=== PATIENT | male | born 2000 | race Caucasian/White ===

== ENCOUNTER 2020-01-02 16:49 | Emergency (ER) | payer OTHER, SELFPAY ==
--- NOTE | 2020-01-02 16:57 | ED.GENADULT ---
HPI - General Adult General Chief complaint: Skin/Abscess/Foreign Body Stated complaint: RASH/ITCHING Time Seen by Provider: 01/02/20 16:57 Source: patient Mode of arrival: ambulatory Limitations: no limitations History of Present Illness HPI narrative: 19-year-old male patient presents to the [facility] with complaints of a rash for the past 2 to 3 weeks. Patient states he thinks he might of come into contact with some bedbugs at his girlfriend's house. Patient states his girlfriend also has a cat. Patient states that the rash is to bilateral arms, back and bilateral legs. Patient states it is very itchy. Patient states he has tried Sally as well as some cortisone cream. Patient states that he was seen in the clinic in [place] a couple weeks ago for the same complaints and was given a shot of what he thinks might have been some steroids and some Sally. Patient states he felt like it helped for couple of days but mostly just made him sleepy. Denies any new lotions, detergents, soaps. Related Data Home Medications Medication Instructions Recorded Confirmed aripiprazole [Abilify] 15 mg PO DAILY 01/02/20 01/02/20 citalopram 20 mg PO DAILY 01/02/20 01/02/20 prazosin 1 mg PO BID 01/02/20 01/02/20 Allergies Allergy/AdvReac Type Severity Reaction Status Date / Time [facility] [[facility] Allergy Hives Verified 01/02/20 17:25 Review of Systems Review of Systems: Narrative: CONSTITUTIONAL: Denies fever, chills, or sweats. EYES: Denies visual changes, redness, or discharge. ENT: Denies rhinorrhea, congestion, sore throat, or otalgia. CARDIOVASCULAR: Denies chest pain, palpitations, or edema. RESPIRATORY: Denies cough or dyspnea. GASTROINTESTINAL: Denies abdominal pain, nausea, vomiting, or diarrhea. GENITOURINARY: Denies dysuria or hematuria. SKIN: Positive rash with itching to bilateral upper and lower extremities and back x2 to 3 weeks. MUSCULOSKELETAL: Denies back pain, joint pain, or myalgia. NEUROLOGIC: Denies headache, numbness, or weakness. PSYCHIATRIC: Denies anxiety or depression. [facility] Past Medical History Medical History (Updated 01/02/20 @ 17:27 by LUBA Rouse) Depression Comments At the time of my signature I agree with nursing past medical history, surgical, social, and family history. There is no relevant family history pertinent to the presenting complaint. Exam Narrative: Exam Narrative: GENERAL: Well-appearing, well-nourished, and in no acute distress. HEAD: Normocephalic, atraumatic. EYES: PERRLA and EOMI. ENT: Nares clear, no rhinorrhea or epistaxis. Mucous membranes moist. NECK: Supple. No lymphadenopathy CHEST: Clear to auscultation. No respiratory distress. HEART: Regular rate and rhythm. No murmur heard. Normal peripheral pulses. ABDOMEN: Soft, nontender, nondistended, normal active bowel sounds. EXTREMITIES: Normal range of motion. No edema. SKIN: Warm, dry, patient has various pinpoint like rash in various sizes some with scabbing from itching. No active drainage at this time. The rash varies all over bilateral upper extremities, bilateral lower extremities and lower back NEURO: No focal deficits. Alert and oriented x3. Course Vital Signs Vital signs: Vital Signs Temperature 36.4 C 01/02/20 17:11 Pulse Rate 70 01/02/20 17:11 Respiratory Rate 20 01/02/20 17:11 Blood Pressure 145/85 H 01/02/20 17:11 Pulse Oximetry 100 01/02/20 17:11 Temperature 36.4 C 01/02/20 17:11 Pulse Rate 70 01/02/20 17:11 Respiratory Rate 20 01/02/20 17:11 Blood Pressure 145/85 H 01/02/20 17:11 Pulse Oximetry 100 01/02/20 17:11 Vital signs reviewed The patient has been informed that they may have pre-hypertension or Hypertension based on a BP reading in the department. I recommend that the patient call the primary care provider listed on their discharge instructions or a physician of their choice this week to arrange follow up for further evaluation of possible
[2020-01-02 17:11] VITALS: BP 145/85; PULSE 70; RESP 20; TEMP 36.4; O2SAT 100
== END 2020-01-02 17:32 | disposition home or self-care (01) ==
PROVIDERS: Emergency Provider Nurse Practitioner Family
DX: R21 Rash and other nonspecific skin eruption (principal); F32.9 Major depressive disorder, single episode, unspecified
CPT/HCPCS: 99213; G0463

== ENCOUNTER 2020-12-04 10:03 | Emergency (ER) | payer BC, SELFPAY ==
--- NOTE | 2020-12-04 10:23 | ED.GENADULT ---
HPI - General Adult General Chief complaint: Unspecified Stated complaint: Not feeling well Time Seen by Provider: 12/04/20 10:23 Source: patient, RN notes reviewed and old records reviewed Mode of arrival: ambulatory Limitations: no limitations History of Present Illness HPI narrative: 20-year-old male presents to the [facility] with complaints of I am just not feeling well. Patient reports on Sunday he started with nausea and vomited one time. Had felt feverish and developed chills. On Sunday he states he became very weak still nauseous and vomited. Has had frequency and burning with urination. Denies any chest pain. Has had intermittent abdominal cramping. Has a history of depression, anxiety. States that yesterday he developed a sore throat with a headache. Denies any chances of an STD. Related Data Home Medications Medication Instructions Recorded Confirmed aripiprazole [Abilify] 15 mg PO DAILY 01/02/20 01/02/20 citalopram 20 mg PO DAILY 01/02/20 01/02/20 prazosin 1 mg PO BID 01/02/20 01/02/20 Allergies Allergy/AdvReac Type Severity Reaction Status Date / Time ziprasidone [From Geodon] Allergy Hives Verified 01/02/20 17:25 Review of Systems Review of Systems: All systems reviewed & are unremarkable except as noted in HPI and below Constitutional: Constitutional: Reports as per HPI, Reports chills and Reports fever(s) (Subjective) Eyes: Eyes: Reports no additional eye complaints ENT: Reports as per HPI and Reports sore throat Cardiovascular: Cardiovascular: Reports no additional cardiovascular complaints and Denies chest pain Respiratory: Respiratory: Reports as per HPI, Denies chest congestion, Reports cough, Denies dyspnea and Denies wheezing Gastrointestinal: Gastrointestinal: Reports as per HPI, Reports abdominal pain (Cramping), Denies diarrhea, Reports nausea and Reports vomiting Genitourinary: Genitourinary: Reports as per HPI, Reports dysuria and Reports urinary frequency Musculoskeletal: Musculoskeletal: Reports as per HPI, Denies back pain, Reports myalgias, Denies joint swelling and Denies muscle cramps Integumentary/Breasts: Skin/Breast: Reports system reviewed and no additional complaints, except as docu Neurologic: Reports system reviewed and no additional complaints, except as documented Psychiatric: Psychiatric: Reports no additional psychiatric complaints Allergic/Immunologic: Allergic/Immunologic: Reports no additional allergic/immunologic complaints PMF Past Medical History Medical History Depression Social History Social History (Updated 12/04/20 @ 10:27 by Silvia Pacheco) Living arrangements: with family Gender identity (if verbalized by the patient): Male Comments At the time of my signature, I reviewed and agree with the nursing past medical, surgical, social, and family history. There is no relevant family history pertinent to the patient complaint. Exam Const: General: no acute distress, alert and ill appearing acutely Nutritional Appearance: well nourished Orientation/consciousness: patient oriented x3 Limitations: no limitations HENMT: Head: normal to inspection Ears: external ears normal, TM's normal bilaterally and EAC's normal General nose exam: Normal external nose present Face and sinus: normal facial exam Throat: posterior oropharynx normal, tonsils normal, uvula midline and no uvular edema Eyes: Conjunctivae: conjunctivae normal Pupils: Equal, round and reactive pupils present Neck: Neck: normal visual inspection, no lymphadenopathy and no meningeal signs Chest: Chest palpation & inspection: normal inspection of the chest Resp: Effort & Inspection: normal respiratory effort and no use of accessory muscles Auscultation: clear to auscultation bilaterally, no crackles, no rales, no rhonchi and no wheezes Cardio: Rate: regular rate Rhythm: regular rhythm GI: GI Palp: Yes Soft to palpation
[2020-12-04 10:28] VITALS: BP 132/79; PULSE 97; RESP 18; TEMP 36.9; O2SAT 100
== END 2020-12-04 10:56 | disposition home or self-care (01) ==
PROVIDERS: Emergency Provider Nurse Practitioner; PCP Family Medicine
DX: J02.0 Streptococcal pharyngitis (principal); F32.9 Major depressive disorder, single episode, unspecified
CPT/HCPCS: 81003; 87491; 87591; 87661; 87880; 99213; G0463

== ENCOUNTER 2021-02-07 10:20 | Emergency (ER) | payer BC, SELFPAY ==
[2021-02-07 10:36] VITALS: BP 122/80; PULSE 89; RESP 18; TEMP 36.5; O2SAT 99
--- NOTE | 2021-02-07 11:02 | ED.URI ---
HPI - URI/Sore Throat General Chief Complaint: Upper Respiratory Infection Stated Complaint: cough,no appetite,headache Time Seen by Provider: 02/07/21 10:54 Source: patient and RN notes reviewed Mode of arrival: ambulatory Limitations: no limitations History of Present Illness HPI Narrative: Patient presents today with a 2-day history of postnasal drip, cough, sore throat, decreased appetite, nausea, headache. He currently rates his sore throat 3/10 and has been taking Sally and Tylenol with some mild relief. Patient states that his symptoms are similar to when he had strep in November. MD elicited complaint: cough and sore throat Related Data Home Medications Medication Instructions Recorded Confirmed divalproex 500 mg PO QID 02/07/21 02/07/21 paliperidone 6 mg PO DAILY 02/07/21 02/07/21 trazodone 50 mg DAILY 02/07/21 02/07/21 Allergies Allergy/AdvReac Type Severity Reaction Status Date / Time ziprasidone [From [facility]] Allergy Hives Verified 02/07/21 10:43 Review of Systems Review of Systems: CONSTITUTIONAL: Denies body aches, fever, chills, or sweats. EYES: Denies visual changes, redness, or discharge. ENT: Denies rhinorrhea, congestion, or otalgia.+ Postnasal drip, sore throat CARDIOVASCULAR: Denies chest pain, palpitations, or edema. RESPIRATORY: Denies cough or dyspnea. GASTROINTESTINAL: Denies abdominal pain, vomiting, or diarrhea.+ Nausea, decreased appetite GENITOURINARY: Denies dysuria or hematuria. SKIN: Denies rash, itching, or wounds. MUSCULOSKELETAL: Denies back pain, joint pain, or myalgia. NEUROLOGIC: Denies numbness, tingling, or weakness.+ Headache PSYCH: Denies depression or anxiety. [facility] Past Medical History Medical History Depression Social History Social History Gender identity (if verbalized by the patient): Male Comments At time of signature, I have reviewed and agree with nursing past medical, surgical, social and family history unless otherwise noted. Please see nursing chart for further information. There is no relevant family history pertinent to the presenting complaint Exam Narrative: GENERAL: Well-appearing, well-nourished, and in no acute distress. HEAD: Normocephalic, atraumatic. EYES: EOMI. No redness or drainage. Conjunctivae normal. ENT: Mucous membranes pink and moist. Nares clear. No rhinorrhea. TMs normal bilaterally. Throat normal. Uvula midline. NECK: Normal AROM. Supple. Left anterior cervical chain lymphadenopathy. CHEST: No respiratory distress. Clear to auscultation. HEART: Regular rate and rhythm. No murmur appreciated. Normal peripheral pulses. EXTREMITIES: Normal range of motion. No edema. SKIN: Warm, dry, no rash. Capillary refill normal. Normal skin turgor. NEURO: No focal deficits. Alert and oriented x3. Gait steady. PSYCH: Normal affect. No signs of depression or anxiety. Course Course Level of Care: Express Care Visit Vital Signs Vital signs: Vital Signs Temperature 97.7 F 02/07/21 10:36 Pulse Rate 89 02/07/21 10:36 Respiratory Rate 18 02/07/21 10:36 Blood Pressure 122/80 02/07/21 10:36 Pulse Oximetry 99 02/07/21 10:36 Temperature 97.7 F 02/07/21 10:36 Pulse Rate 89 02/07/21 10:36 Respiratory Rate 18 02/07/21 10:36 Blood Pressure 122/80 02/07/21 10:36 Pulse Oximetry 99 02/07/21 10:36 Reviewed. Pt has been instructed to follow up with his PCP regarding his elevated blood pressure today. MDM - URI/Sore Throat Differential Diagnosis Differential diagnosis: Likely upper respiratory infection, viral infection, pharyngitis and other (Strep throat) Lab Data Attestation: I reviewed the patient's lab results. Labs: Strep Screen Presumptive Negative *(Reference Range: Negative)* Critical Care Time Critical Care Time
== END 2021-02-07 11:08 | disposition home or self-care (01) ==
PROVIDERS: Emergency Provider Nurse Practitioner; PCP Family Medicine
DX: J06.9 Acute upper respiratory infection, unspecified (principal); F32.A Depression, unspecified
CPT/HCPCS: 87081; 87880; 99213; G0463

== ENCOUNTER 2021-11-06 11:51 | Emergency (ER) | payer BC, SELFPAY ==
[2021-11-06 12:17] VITALS: BP 147/91; PULSE 87; RESP 18; TEMP 37.1; O2SAT 100
--- NOTE | 2021-11-06 13:28 | ED.GENADULT ---
HPI - General Adult General Chief complaint: Urogenital-Male Stated complaint: groin pain History of Present Illness HPI narrative: Patient is a 21-year-old male who presents to the [facility] for evaluation of of a testicular problem that began yesterday. Patient reports he felt and left testicle after sitting down in a chair. Pain is intermittent and achy in nature. He reports taking ibuprofen for pain. Patient does not identify alleviating or aggravating factors. Denies the following associated signs and symptoms fever, dysuria, penile discharge, and presence of scrotal mass. Additionally, he denies injury, straining or lifting, and sexual contact. Related Data Home Medications Medication Instructions Recorded Confirmed divalproex 500 mg tablet,extended 500 mg PO QID 02/07/21 11/06/21 release 24 hr paliperidone 6 mg tablet,extended 6 mg PO DAILY 02/07/21 11/06/21 release 24 hr Strattera 11/06/21 mirtazapine 15 mg tablet 7.5 mg DAILY 11/06/21 11/06/21 Allergies Allergy/AdvReac Type Severity Reaction Status Date / Time [facility] Allergy Hives Verified 11/06/21 12:43 Review of Systems Review of Systems: ?Denies abdominal pain, nausea, vomiting, diarrhea, constipation, testicular swelling, purpuric rash, abdominal pain, arthralgias, intermittent scrotal masses, groin swelling/pain, parotid gland swelling, flank pain or hematuria PMFSH Past Medical History Medical History (Updated 11/06/21 @ 14:01 by LUBA Wright, FAY) Anxiety Bipolar 2 disorder Depression Social History Social History Gender identity (if verbalized by the patient): Male Comments I have reviewed and agree with the patient's past medical, surgical, social, and family hx as documented by the RN. There is no relevant family history pertinent to the presenting complaint. Exam Narrative: GENERAL: Well-appearing, well-nourished, and in no acute distress. HEAD: Normocephalic, atraumatic. NECK: Supple. No lymphadenopathy or nuchal rigidity. CHEST: Lung sounds are clear to auscultation in bilateral lung lee. No respiratory distress. HEART: Regular rate and rhythm. No murmur, gallop, or rub heard. ABDOMEN: Soft, non-tender, non-distended, normal active bowel sounds in all quadrants. No guarding. No rebound tenderness. No pulsatile or palpable abdominal mass(es). No CVAT : No evidence of tenderness, high-riding, or horizontally displaced testis. No evidence of inguinal or scrotal nonreducible/reducible mass with severe pain, scrotal or perineal erythema, necrotic or blistered skin lesions, and toxic appearance. EXTREMITIES: Normal range of motion. No edema. SKIN: Warm, dry, no rash. No skin color changes. Excellent turgor. NEURO: No focal deficits. Alert and oriented x3. Course Course Level of Care: Express Care Visit Vital Signs Vital signs: Vital Signs Temperature 98.8 F 11/06/21 12:17 Pulse Rate 87 11/06/21 12:17 Respiratory Rate 18 11/06/21 12:17 Blood Pressure 147/91 H 11/06/21 12:17 Pulse Oximetry 100 11/06/21 12:17 Oxygen Delivery Room Air 11/06/21 12:17 Temperature 98.8 F 11/06/21 12:17 Pulse Rate 87 11/06/21 12:17 Respiratory Rate 18 11/06/21 12:17 Blood Pressure 147/91 H 11/06/21 12:17 Pulse Oximetry 100 11/06/21 12:17 Oxygen Delivery Room Air 11/06/21 12:17 Medical Decision Making Differential Diagnosis Differential Diagnosis: Testicular torsion, STI, UTI, orchitis Vital Signs Vital Signs: Vital Signs Temperature 98.8 F 11/06/21 12:17 Pulse Rate 87 11/06/21 12:17 Respiratory Rate 18 11/06/21 12:17 Blood Pressure 147/91 H 11/06/21 12:17 Pulse Oximetry 100 11/06/21 12:17 Oxygen Delivery Room Air 11/06/21 12:17 Temperature 98.8 F 11/06/21 12:17 Pulse Rate 87 11/06/21 12:17 Respiratory Rate 18 11/06/21 12:17 Blood Pressure 147
== END 2021-11-06 13:54 | disposition home or self-care (01) ==
PROVIDERS: Emergency Provider Nurse Practitioner Family; PCP Family Medicine
DX: E29.9 Testicular dysfunction, unspecified (principal); F31.81 Bipolar II disorder
CPT/HCPCS: 81003; 99213; G0463

== ENCOUNTER 2023-01-08 05:36 | Emergency (ER) | payer BC, SELFPAY ==
--- NOTE | 2023-01-08 05:48 | ECG_ITS ---
Measurements Intervals [place] Rate: 117 P: 65 [place]: 119 QRS: 77 QRSD: 84 T: -3 QT: 300 QTc: 420 Interpretive Statements SINUS TACHYCARDIA WITH SHORT [place] INTERVAL VOLTAGE CRITERIA FOR LVH WITH SECONDARY REPOLARIZATION ABNORMALITY VERSUS NORMAL VARIANT FOR AGE ABNORMAL ECG NO PREVIOUS ECG AVAILABLE FOR COMPARISON Electronically Signed On 01-08-2023 15:10:32 [employer] by Jona Blackman M.D.
[2023-01-08 05:50] VITALS: BP 181/103; PULSE 111; RESP 22; TEMP 37.2; O2SAT 100
--- NOTE | 2023-01-08 05:50 | ED.GENADULT ---
HPI - General Adult General Chief complaint: Psychiatric Symptoms <Que Michelle MD - Last Filed: 01/08/23 05:57> Stated complaint: SI AFTER SMOKING SYNTHETIC MARIJUANA <Que Michelle MD - Last Filed: 01/08/23 05:57> Time Seen by Provider: 01/08/23 05:42 <Que Michelle MD - Last Filed: 01/08/23 05:57> History of Present Illness HPI narrative: Patient is 20-year-old gentleman who presents emergency department chief complaint of depression anxiety and suicidal ideation. Patient reports he smoked combination of delta 8 not attend THC this evening and started feel more anxious and more depressed. The patient reports that he has had thoughts of harming himself does not have a specific plan. Patient reports he has had previous hospitalizations and does see a counselor. <Que Michelle MD - Last Filed: 01/08/23 05:57> Related Data Home medications: Home Medications Medication Instructions Recorded Confirmed divalproex 500 mg tablet,extended 500 mg PO QID 02/07/21 11/06/21 release 24 hr paliperidone 6 mg tablet,extended 6 mg PO DAILY 02/07/21 11/06/21 release 24 hr Strattera 11/06/21 mirtazapine 15 mg tablet 7.5 mg DAILY 11/06/21 11/06/21 <Que Michelle MD - Last Filed: 01/08/23 05:57> Allergies/adverse reactions: Allergies Allergy/AdvReac Type Severity Reaction Status Date / Time ziprasidone [From Geodon] Allergy Hives Verified 11/06/21 12:43 <Que Michelle MD - Last Filed: 01/08/23 05:57> Review of Systems Review of Systems: A 10 system review of systems was completed on the patient and is negative except for what is stated in the HPI. Nursing and ancillary documentation was reviewed. <Que Michelle MD - Last Filed: 01/08/23 05:57> PMFSH Past Medical History Medical History: Medical History Anxiety Bipolar 2 disorder Depression <Que Michelle MD - Last Filed: 01/08/23 05:57> Social History Social History: Social History Substance use type: marijuana Living arrangements: with family Gender identity (if verbalized by the patient): Male <Que Michelle MD - Last Filed: 01/08/23 05:57> Exam Narrative: GENERAL: Well-appearing, well-nourished, and in no acute distress. HEAD: Normocephalic, atraumatic. EYES: PERRLA and EOMI. ENT: Nares clear, no rhinorrhea or epistaxis. Mucous membranes moist. NECK: Supple. CHEST: Clear to auscultation. No respiratory distress. HEART: Regular rate and rhythm. No murmur heard. Normal peripheral pulses. ABDOMEN: Soft, nontender, nondistended, normal active bowel sounds. EXTREMITIES: Normal range of motion. No edema. SKIN: Warm, dry, no rash. NEURO: No focal deficits. Alert and oriented x3. PSYCH: Depressed mood and affect, expresses suicidal ideation <Que Michelle MD - Last Filed: 01/08/23 05:57> Course Course Emergency Course: Patient resting comfortably. No issues during my care. Accepted to [facility] for psychiatric care. <Dominic Mccord MD - Last Filed: 01/08/23 18:49> Vital Signs Vital signs: Vital Signs Temperature 98.9 F 01/08/23 05:50 Pulse Rate 111 H 01/08/23 05:50 Respiratory Rate 22 H 01/08/23 05:50 Blood Pressure 181/103 H 01/08/23 05:50 Pulse Oximetry 100 01/08/23 05:50 Oxygen Delivery Room Air 01/08/23 05:50 Temperature 98 F 01/08/23 12:27 Pulse Rate 69 01/08/23 12:27 Respiratory Rate 18 01/08/23 12:27 Blood Pressure 136/84 01/08/23 12:27 Pulse Oximetry 99 01/08/23 12:27 Oxygen Delivery Room Air 01/08/23 05:50 <Que Michelle MD - Last Filed: 01/08/23 05:57> Vital Signs Temperature 98.9 F 01/08/23 05:50 Pulse Rate 111 H 01/08/23 05:50 Respiratory Rate 22 H
[2023-01-08] MEDS: SODIUM CHLORIDE 0.9% IV 1,000 ML 999 ML IV CONT (05:59)
[2023-01-08 06:08] LABS: Basophils Absolute Auto 0.1 K/mm3 (0.0-0.1); Basophils Percent Auto 0.8 % (0.2-1.2); Eosinophils Percent Auto 0.7 % (0-4.4); Hematocrit 41.4 % (42.0-52.0); Hemoglobin 14.2 g/dL (14.0-18.0); Lymphocytes Absolute Auto 2.74 K/mm3 (0.9-3.2); Lymphocytes Percent Auto 44.9 % (18.3-44.2); Mean Corpuscular HGB Conc 34.3 g/dl (32-36); Mean Corpuscular Hemoglobin 31.6 pg (26-34); Mean Platelet Volume 10.1 fl (7.4-10.4); Monocytes Absolute Auto 0.5 K/mm3 (0.1-0.6); Monocytes Percent Auto 8.7 % (2.6-8.5); Neutrophils Absolute Auto 2.7 K/mm3 (1.3-6.7); Neutrophils Percent Auto 44.9 % (45.5-73.1); Platelet Count Result 273 k/mm3 (150-375); White Blood Count 6.1 K/mm3 (4.5-10.0)
[2023-01-08 06:09] LABS: Appearance Urine Clear (Clear); Bilirubin Urine Negative (Negative); Blood Urine Negative (Negative); Color Urine Yellow (Yellow); Glucose Urine UA Negative (Negative); Ketones Urine Negative (Negative); Leukocyte Esterase Ur Negative LEU/UL (Negative); Nitrate Urine Negative (Negative); Protein Urine Negative (Negative); Specific Grav Ur 1.011 (1.001-1.035)
[2023-01-08 06:35] LABS: Add Urine Microscopic? NO
[2023-01-08 06:44] LABS: Influenza A QL RT-PCR Negative (Negative); Influenza B QL RT-PCR Negative (Negative); SARS-CoV-2 RNA PCR Positive (Negative)
[2023-01-08 06:47] LABS: Acetaminophen < 10 ug/mL (10-30); Ethanol < 10 mg/dL (<10); Salicylate < 1.0 mg/dL (2-20)
[2023-01-08 07:20] VITALS: BP 141/88; PULSE 100; RESP 16; TEMP 37; O2SAT 98
--- NOTE | 2023-01-08 07:36 | PC.NURSE ---
Pt states he it is ok sharing information with mother Ashely and father Dhruv
--- NOTE | 2023-01-08 07:55 | PC.NURSE ---
Breakfast safety tray ordered
[2023-01-08 08:31] LABS: Amphetamine Screen Urine Negative (Negative); Barbiturate Screen Urine Negative (Negative); Benzodiazepines Screen Urine Negative (Negative); Cannabinoid Screen Urine Positive (Negative); Cocaine Screen Urine Negative (Negative); Methadone Screen Urine Negative (Negative); Opiate Screen Urine Negative (Negative); Phencyclidine Screen Urine Negative (Negative)
[2023-01-08 08:35] LABS: Alanine Aminotransferase 18 U/L (6-50); Albumin Level 4.3 g/dL (3.5-5.1); Alkaline Phosphatase 66 U/L (38-126); Anion Gap 12 mmol/L (8-16); Aspartate Amino Transferase 27 U/L (17-59); Bilirubin,Total 0.6 mg/dL (0.2-1.3); Blood Urea Nitrogen 6 mg/dL (9-20); Calcium 9.2 mg/dL (8.4-10.2); Carbon Dioxide 23 mmol/L (22-30); Chloride 105 mmol/L (98-107); Estimated CRCL calculation 93 ml/min; Estimated Glomerular Filt Rate > 60; Glucose 147 mg/dL (65-110); Potassium 3.3 mmol/L (3.4-5.0); Sodium 140 mmol/L (137-145)
--- NOTE | 2023-01-08 08:36 | PC.NURSE ---
Al contacted for pt evaluation.
--- NOTE | 2023-01-08 08:53 | PC.NURSE ---
Pt medically cleared per Dr. Mccord
[2023-01-08 12:27] VITALS: BP 136/84; PULSE 69; RESP 18; TEMP 36.6; O2SAT 99
--- NOTE | 2023-01-08 15:39 | PC.NURSE ---
[facility] reports they did not receive the fax earlier today. Reprinted chart with new vital signs and faxed to [facility].
--- NOTE | 2023-01-08 18:19 | PC.NURSE ---
Rashad at [facility] pt is accepted. [phone] contact for Rashad at [facility]
[2023-01-08 19:28] VITALS: BP 113/80; PULSE 85; RESP 18; TEMP 36.5; O2SAT 99
--- NOTE | 2023-01-08 19:36 | PC.NURSE ---
Nurse report called to [phone] RN
[2023-01-08 20:00] VITALS: BP 130/87; PULSE 80; RESP 19; O2SAT 97
== END 2023-01-08 20:00 ==
PROVIDERS: Emergency Provider Emergency Medicine; PCP Family Medicine
DX: R45.851 Suicidal ideations (principal); F31.9 Bipolar disorder, unspecified; U07.1 COVID-19; F41.9 Anxiety disorder, unspecified; R00.0 Tachycardia, unspecified
CPT/HCPCS: 36415; 80053; 80164; 80307; 81003; 84443; 85025; 87636; 93005; 96360; 99285; J7030